=== PATIENT | female | born 1975 | race Caucasian/White ===

== ENCOUNTER 2022-11-11 11:56 | Inpatient (IN) | payer BC ==
[2022-11-11] MEDS ORDERED: Butorphanol 1 MG/ML SDV IVPUSH PRN (12:16)
[2022-11-11] MEDS ORDERED: Misoprostol 200 MCG Tab PO PRN (12:16)
[2022-11-11] MEDS ORDERED: Sodium Chloride 0.9% 20 ML SDV IV PRN (12:16)
[2022-11-11] MEDS ORDERED: Methylergonovine 0.2 MG/1 ML Amp IM PRN (12:16)
[2022-11-11] MEDS ORDERED: Carboprost Tromethamine 250 MCG/1 mL Vial IM PRN (12:16)
[2022-11-11] MEDS ORDERED: Ondansetron 4 MG/2 ML SDV IVPUSH PRN (12:16)
[2022-11-11] MEDS ORDERED: Sodium Chloride 0.9% 2.5 ML Syringe FLUSH PRN (12:16)
[2022-11-11] MEDS ORDERED: Lidocaine 1% 50 ML MDV INJECT PRN (12:16)
[2022-11-11] MEDS ORDERED: Water For Irrigation,Sterile 1,000 ML Container IRR PRN (12:16)
[2022-11-11] MEDS ORDERED: Sodium Chloride 0.9% 10 ML Syringe FLUSH PRN (12:16)
[2022-11-11] MEDS ORDERED: Tranexamic Acid 1,000 MG in Sodium Chloride 0.9% 100 ML IV PRN (12:16)
[2022-11-11] MEDS ORDERED: Terbutaline 1 MG/ML SDV SUBCUT PRN (12:16)
[2022-11-11] MEDS ORDERED: Oxytocin/0.9 % Sodium Chloride 30 UNIT/500 ML BAG IV SCH ×2 (12:30)
[2022-11-11] MEDS: Lactated Ringers 1,000 ML IV SCH (12:45)
[2022-11-11] MEDS ORDERED: Misoprostol 25 MCG (1/4 of 100 MCG) Tab VAG PRN ×2 (13:00→17:00)
[2022-11-11 13:01] LABS: HEMATOCRIT 40.7 % (36.0-46.0); HEMOGLOBIN 13.7 g/dL (12.0-16.0); MEAN CORPUSCULAR HEMOGLOBIN 30.5 pg (27.0-32.0); MEAN CORPUSCULAR HGB CONC 33.7 g/dL (31.0-37.0); MEAN CORPUSCULAR VOLUME 90.6 fL (80.0-98.0); MEAN PLATELET VOLUME 9.9 fL (7.40-12.00); RED BLOOD CELL COUNT 4.49 M/uL (4.30-5.90); WHITE BLOOD CELL COUNT,WBC 14.59 K/uL (4.0-11.0)
[2022-11-11 13:31] LABS: ALANINE AMINOTRANSFERASE,ALT 31 IU/L (14-63); ALBUMIN 2.3 g/dL (3.4-5.0); ALKALINE PHOSPHATASE 131 U/L (46-116); ASPARTATE AMNIOTRANSFERASE,AST 20 IU/L (15-37); BILIRUBIN TOTAL 0.5 mg/dL (0.2-1.0); BLOOD UREA NITROGEN,BUN 13 mg/dL (7.0-18.0); CALCIUM 8.9 mg/dL (8.5-10.1); CARBON DIOXIDE,CO2 21.5 mmol/L (21.0-32.0); CHLORIDE,CL 104 mmol/L (98-107); CREATININE 0.7 mg/dL (0.6-1.0); GLUCOSE RANDOM 89 mg/dL (74-106); PROTEIN TOTAL,TP 6.5 g/dL (6.4-8.2); SODIUM,NA 136 mmol/L (136-145)
[2022-11-11 13:34] LABS: A/G RATIO 0.6 (0.9-1.6); ESTIMATED GFR 107 mL/min (>60)
[2022-11-11 13:37] LABS: CREATININE,URINE RAND 18.2 mg/dL; PROTEIN,URINE RANDOM <6.0 mg/dL (<11.9)
[2022-11-11] MEDS ORDERED: Misoprostol 25 MCG (1/4 of 100 MCG) Tab VAG SCH (19:15)
[2022-11-12] MEDS: Lactated Ringers 1,000 ML IV SCH (01:35)
[2022-11-12] MEDS ORDERED: ePHEDrine 50 MG/ML SDV IVPUSH PRN ×2 (10:59)
[2022-11-12] MEDS ORDERED: Phenylephrine HCl 0.5 MG/5 ML AMP IVPUSH PRN (10:59)
[2022-11-12] MEDS ORDERED: Ropivacaine HCl/PF 400 MG in Premix Bag 1 BAG EPIDUR SCH (11:00)
[2022-11-12] MEDS ORDERED: Lanolin 100% Cream 7 GM Tube TOP PRN (11:26)
[2022-11-12] MEDS ORDERED: Bisacodyl 10 MG Supp RECTAL PRN (11:26)
[2022-11-12] MEDS ORDERED: Docusate Sodium 100 MG Cap PO PRN (11:26)
[2022-11-12] MEDS ORDERED: Benzocaine/Menthol 20%-0.5% Spray 78 GM Cannister TOP PRN (11:26)
[2022-11-12] MEDS ORDERED: Tranexamic Acid 1,000 MG in Sodium Chloride 0.9% 100 ML IV PRN (11:26)
[2022-11-12] MEDS ORDERED: Witch Hazel Medicated Pads 40/Jar TOP PRN (11:26)
[2022-11-12] MEDS ORDERED: Ibuprofen 400 MG Tab PO PRN (11:26)
[2022-11-12] MEDS ORDERED: Acetaminophen 500 MG Tab PO PRN (11:26)
[2022-11-12 11:30] LABS: PH,UMBILICAL ARTERIAL 7.251 (7.18-7.38); PH,UMBILICAL VENOUS 7.283 (7.25-7.45)
[2022-11-12] MEDS: Ibuprofen 800 MG Tab PO PRN (19:33)
[2022-11-13] MEDS: Acetaminophen 500 MG Tab PO PRN ×2 (00:03→07:48)
[2022-11-13] MEDS: Ibuprofen 800 MG Tab PO PRN ×2 (04:05→10:51)
[2022-11-13 06:15] LABS: HEMOGLOBIN 11.4 g/dL (12.0-16.0)
[2022-11-13] MEDS ORDERED: Levothyroxine 50 MCG Tab PO SCH (07:30)
[2022-11-13] MEDS ORDERED: Thyroid 60 MG Tab PO SCH (07:30)
[2022-11-13] MEDS ORDERED: Prenatal Multivitamin with Calcium/Folic Acid/Iron Tab PO SCH (09:00)
[2022-11-13] MEDS ORDERED: Ketorolac 30 MG/ML SDV IVPUSH ONE (14:39)
[2022-11-13] MEDS ORDERED: Sodium Chloride 0.9% 250 ML IV SCH (15:30)
[2022-11-14 04:39] VITALS: BP 118/85; PULSE 75
== END 2022-11-14 06:25 | disposition home or self-care (01) | DRG 560 ==
LOC: MW.OB 11:56 → MW.OBCHECK 11:56 → MW.OB 12:16 → MW.OBCHECK 12:16 → OBSVTOIN 11-12 11:27 → MW.OB 11-12 15:10
PROVIDERS: ADMIT Obstetrics & Gynecology; ATTEND Obstetrics & Gynecology
PROC: 10E0XZZ Delivery of Products of Conception, External Approach (ICD-10-PCS; principal; 2022-11-12)
PROC: 0KQM0ZZ Repair Perineum Muscle, Open Approach (ICD-10-PCS; 2022-11-12)
PROC: 10907ZC Drainage of Amniotic Fluid, Therapeutic from Products of Conception, Via Natural or Artificial Opening (ICD-10-PCS; 2022-11-12)
PROC: 3E0P7VZ Introduction of Hormone into Female Reproductive, Via Natural or Artificial Opening (ICD-10-PCS; 2022-11-12)
PROC: 3E033VJ Introduction of Other Hormone into Peripheral Vein, Percutaneous Approach (ICD-10-PCS; 2022-11-12)
PROC: 3E0R3BZ Introduction of Anesthetic Agent into Spinal Canal, Percutaneous Approach (ICD-10-PCS; 2022-11-12)
PROC: 00HU33Z Insertion of Infusion Device into Spinal Canal, Percutaneous Approach (ICD-10-PCS; 2022-11-12)
DX: O13.4 Gestational [pregnancy-induced] hypertension without significant proteinuria, complicating childbirth (principal); Z37.0 Single live birth; O40.3XX0 Polyhydramnios, third trimester, not applicable or unspecified; O70.1 Second degree perineal laceration during delivery; Z3A.38 38 weeks gestation of pregnancy; O69.5XX2 Labor and delivery complicated by vascular lesion of cord, fetus 2
CPT/HCPCS: 36415; 59025; 59409; 80053; 82570; 82803; 84156; 84550; 85014; 85018; 85027; 86592; 86850; 86900; 86901; A9270-GY; J0595; J1885; J2001; J2590; J3475; J7120

== ENCOUNTER 2022-11-17 13:19 | Inpatient (IN) | payer BC ==
[2022-11-17 14:02] LABS: BASOPHILS PERCENT AUTO 0.3 % (0.0-1.5); EOSINOPHILS ABSOLUTE AUTO 0.3 K/uL (0.0-0.7); EOSINOPHILS PERCENT AUTO 2.8 % (0.0-7.0); LYMPHOCYTES ABSOLUTE AUTO 1.9 K/uL (0.6-2.4); LYMPHOCYTES PERCENT AUTO 17.8 % (16.0-40.0); MEAN CORPUSCULAR HEMOGLOBIN 31.2 pg (27.0-32.0); MEAN CORPUSCULAR HGB CONC 34.3 g/dL (31.0-37.0); MEAN CORPUSCULAR VOLUME 90.9 fL (80.0-98.0); MONOCYTES ABSOLUTE AUTO 1.1 K/uL (0.0-0.8); MONOCYTES PERCENT AUTO 10.2 % (0.0-15.0); NEUTROPHILS ABSOLUTE AUTO 7.3 K/uL (1.4-5.7); NEUTROPHILS PERCENT AUTO 68.9 % (48.0-80.0); NRBC ABSOLUTE 0 K/uL; PLATELET COUNT,PLT 253 K/uL (150-400); RED BLOOD CELL COUNT 3.85 M/uL (4.30-5.90); WHITE BLOOD CELL COUNT,WBC 10.57 K/uL (4.0-11.0)
[2022-11-17] MEDS ORDERED: Labetalol 100 MG/20 ML MDV IVPUSH ONE ×2 (14:04→16:09)
[2022-11-17] MEDS ORDERED: Magnesium Sulfate/Water 4 GM in Premix Bag 1 BAG IV ONE (14:05)
[2022-11-17 14:11] LABS: INR < 0.93 (0.86-1.11)
[2022-11-17 14:11] LABS: APPEARANCE,URINE CLEAR; BILIRUBIN,URINE NEGATIVE (NEGATIVE); COLOR,URINE YELLOW; GLUCOSE,URINE NEGATIVE (NEGATIVE); KETONES,URINE NEGATIVE (NEGATIVE); LEUKOCYTE ESTERASE,URINE NEGATIVE (NEGATIVE); NITRITE,URINE NEGATIVE (NEGATIVE); OCCULT BLOOD,URINE MODERATE (NEGATIVE); PH,URINE 6.5 (5.0-8.0); PROTEIN,URINE NEGATIVE (NEGATIVE); UROBILINOGEN,URINE 0.2 EU/dL (<2.0)
[2022-11-17 14:24] LABS: A/G RATIO 0.6 (0.9-1.6); ALBUMIN 2.3 g/dL (3.4-5.0); BILIRUBIN TOTAL 0.4 mg/dL (0.2-1.0); CALCIUM 8.2 mg/dL (8.5-10.1); CARBON DIOXIDE,CO2 24.4 mmol/L (21.0-32.0); CREATININE 0.8 mg/dL (0.6-1.0); EST CRCL DRUG DOSING (CG) 74.26 mL/min; PROTEIN TOTAL,TP 5.9 g/dL (6.4-8.2)
[2022-11-17 14:25] LABS: MAGNESIUM 1.7 mg/dL (1.8-2.4); URIC ACID 5.2 mg/dL (2.6-7.2)
[2022-11-17 14:27] LABS: BACTERIA,URINE FEW (NEGATIVE); EPITHELIAL CELLS,URINE FEW (NONE-FEW); RBC,URINE 0-3 (0-2/HPF); WBC,URINE 0-1 (0-5/HPF)
[2022-11-17 14:28] LABS: MUCUS,URINE LIGHT (NONE-MOD)
[2022-11-17] MEDS ORDERED: Acetaminophen 325 MG Tab PO ONE (15:49)
[2022-11-17] MEDS: Magnesium Sulfate/Water 20 GM/500 ML BAG IV SCH (16:02)
[2022-11-17] MEDS ORDERED: Sodium Chloride 0.9% 1,000 ML IV SCH (17:45)
[2022-11-17] MEDS ORDERED: Ketorolac 30 MG/ML SDV IVPUSH ONE (17:50)
[2022-11-17] MEDS ORDERED: Sodium Chloride 0.9% 10 ML Syringe FLUSH PRN (19:41)
[2022-11-17] MEDS ORDERED: Sodium Chloride 0.9% 2.5 ML Syringe FLUSH PRN (19:41)
[2022-11-17] MEDS ORDERED: Sodium Chloride 0.9% 20 ML SDV IV PRN (19:41)
[2022-11-17] MEDS ORDERED: Calcium Gluconate 10% 1 GM/10 ML SDV IV PRN (19:41)
[2022-11-17] MEDS: Labetalol 100 MG Tab PO SCH (21:11)
[2022-11-17] MEDS ORDERED: Metoclopramide 10 MG/2 ML SDV IVPUSH ONE (22:25)
[2022-11-17 23:05] LABS: HEMATOCRIT 35.5 % (36.0-46.0); HEMOGLOBIN 11.9 g/dL (12.0-16.0); MEAN CORPUSCULAR HEMOGLOBIN 30.6 pg (27.0-32.0); MEAN CORPUSCULAR HGB CONC 33.5 g/dL (31.0-37.0); MEAN CORPUSCULAR VOLUME 91.3 fL (80.0-98.0); MEAN PLATELET VOLUME 9.3 fL (7.40-12.00); RED BLOOD CELL COUNT 3.89 M/uL (4.30-5.90); WHITE BLOOD CELL COUNT,WBC 11.55 K/uL (4.0-11.0)
[2022-11-17 23:32] LABS: A/G RATIO 0.6 (0.9-1.6); ALBUMIN 2.3 g/dL (3.4-5.0); BILIRUBIN TOTAL 0.4 mg/dL (0.2-1.0); CARBON DIOXIDE,CO2 20.7 mmol/L (21.0-32.0); CREATININE 0.8 mg/dL (0.6-1.0); EST CRCL DRUG DOSING (CG) 74.26 mL/min; MAGNESIUM 5.5 mg/dL (1.8-2.4); POTASSIUM,K 3.7 mmol/L (3.5-5.1)
[2022-11-18] MEDS: Magnesium Sulfate/Water 20 GM/500 ML BAG IV SCH ×2 (02:06→11:58)
[2022-11-18] MEDS ORDERED: Ketorolac 30 MG/ML SDV IVPUSH ONE (02:26)
[2022-11-18] MEDS: Acetaminophen/oxyCODONE 325-5 MG Tab PO PRN ×3 (08:36→21:21)
[2022-11-18] MEDS: Labetalol 100 MG Tab PO SCH ×2 (08:38→21:16)
[2022-11-18 10:38] LABS: HEMATOCRIT 34.5 % (36.0-46.0); HEMOGLOBIN 11.8 g/dL (12.0-16.0); MEAN CORPUSCULAR HEMOGLOBIN 31.2 pg (27.0-32.0); MEAN CORPUSCULAR HGB CONC 34.2 g/dL (31.0-37.0); MEAN CORPUSCULAR VOLUME 91.3 fL (80.0-98.0); MEAN PLATELET VOLUME 9.3 fL (7.40-12.00); RED BLOOD CELL COUNT 3.78 M/uL (4.30-5.90); WHITE BLOOD CELL COUNT,WBC 13.51 K/uL (4.0-11.0)
[2022-11-18 11:04] LABS: A/G RATIO 0.6 (0.9-1.6); ALBUMIN 2.2 g/dL (3.4-5.0); BILIRUBIN TOTAL 0.4 mg/dL (0.2-1.0); CARBON DIOXIDE,CO2 21.9 mmol/L (21.0-32.0); CREATININE 0.9 mg/dL (0.6-1.0); EST CRCL DRUG DOSING (CG) 66.01 mL/min; MAGNESIUM 6.5 mg/dL (1.8-2.4); POTASSIUM,K 3.9 mmol/L (3.5-5.1); PROTEIN TOTAL,TP 5.7 g/dL (6.4-8.2)
[2022-11-19] MEDS: Acetaminophen/oxyCODONE 325-5 MG Tab PO PRN ×4 (04:35→20:43)
[2022-11-19 06:15] LABS: A/G RATIO 0.6 (0.9-1.6); ALBUMIN 2.3 g/dL (3.4-5.0); BILIRUBIN TOTAL 0.6 mg/dL (0.2-1.0); CALCIUM 6.9 mg/dL (8.5-10.1); CARBON DIOXIDE,CO2 23.2 mmol/L (21.0-32.0); EST CRCL DRUG DOSING (CG) 59.41 mL/min; POTASSIUM,K 4.3 mmol/L (3.5-5.1)
[2022-11-19] MEDS: NIFEdipine 30 MG Tab.ER PO SCH (09:06)
[2022-11-19] MEDS ORDERED: Furosemide 20 MG Tab PO ONE (11:19)
[2022-11-19] MEDS ORDERED: NIFEdipine 10 MG Cap PO ONE (15:38)
[2022-11-19] MEDS ORDERED: NIFEdipine 30 MG Tab.ER PO ONE (15:56)
[2022-11-19] MEDS ORDERED: Labetalol 100 MG Tab PO ONE (18:06)
[2022-11-19] MEDS: Ibuprofen 800 MG Tab PO PRN (18:41)
[2022-11-19] MEDS: Pantoprazole 40 MG Tab.CR PO SCH (21:17)
[2022-11-19] MEDS: Labetalol 100 MG Tab PO SCH (22:14)
[2022-11-20] MEDS: Acetaminophen/oxyCODONE 325-5 MG Tab PO PRN ×3 (00:33→09:04)
[2022-11-20] MEDS: Labetalol 100 MG Tab PO SCH (06:05)
[2022-11-20] MEDS ORDERED: Thyroid 60 MG Tab PO SCH (07:30)
[2022-11-20] MEDS: Ibuprofen 800 MG Tab PO PRN ×2 (07:38→20:48)
[2022-11-20] MEDS ORDERED: Furosemide 20 MG Tab PO SCH (09:00)
[2022-11-20] MEDS: NIFEdipine 30 MG Tab.ER PO SCH ×2 (09:02→21:19)
[2022-11-20] MEDS ORDERED: Labetalol 100 MG Tab PO PRN (10:30)
[2022-11-20] MEDS ORDERED: NIFEdipine 30 MG Tab.ER PO ONE (10:34)
[2022-11-20] MEDS: Levothyroxine 50 MCG Tab PO SCH (15:39)
[2022-11-20] MEDS: Thyroid 60 MG Tab PO SCH (15:47)
[2022-11-20 16:34] LABS: T3 FREE 2.46 pg/mL (2.18-3.98); T4 FREE 0.86 ng/dL (0.76-1.46); TSH ULTRASENSITIVE 2.89 uIU/mL (0.36-3.74)
[2022-11-20 20:21] LABS: HEMATOCRIT 37.8 % (36.0-46.0); HEMOGLOBIN 12.8 g/dL (12.0-16.0); MEAN CORPUSCULAR HEMOGLOBIN 31.2 pg (27.0-32.0); MEAN CORPUSCULAR HGB CONC 33.9 g/dL (31.0-37.0); MEAN CORPUSCULAR VOLUME 92.2 fL (80.0-98.0); RED BLOOD CELL COUNT 4.1 M/uL (4.30-5.90); WHITE BLOOD CELL COUNT,WBC 9.72 K/uL (4.0-11.0)
[2022-11-20] MEDS: Pantoprazole 40 MG Tab.CR PO SCH (21:22)
[2022-11-21] MEDS: Ibuprofen 800 MG Tab PO PRN ×2 (04:48→17:21)
[2022-11-21 06:15] LABS: A/G RATIO 0.6 (0.9-1.6); ALBUMIN 2.7 g/dL (3.4-5.0); BILIRUBIN TOTAL 0.7 mg/dL (0.2-1.0); CALCIUM 9.2 mg/dL (8.5-10.1); CARBON DIOXIDE,CO2 26.5 mmol/L (21.0-32.0); CREATININE 0.9 mg/dL (0.6-1.0); EST CRCL DRUG DOSING (CG) 66.01 mL/min; POTASSIUM,K 4.5 mmol/L (3.5-5.1)
[2022-11-21] MEDS: Acetaminophen/oxyCODONE 325-5 MG Tab PO PRN (07:03)
[2022-11-21] MEDS: Levothyroxine 50 MCG Tab PO SCH (09:07)
[2022-11-21] MEDS: Thyroid 60 MG Tab PO SCH (09:10)
[2022-11-21] MEDS: NIFEdipine 30 MG Tab.ER PO SCH (09:14)
[2022-11-21] MEDS ORDERED: MAGNESIUM OXIDE 400 MG PO SCH (11:00)
[2022-11-21 15:59] VITALS: BP 124/75; PULSE 62
== END 2022-11-21 17:30 | disposition home or self-care (01) | DRG 561 ==
LOC: MW.ED 13:19 → MW.OB 16:19 → OBSVTOIN 11-19 22:00 → MW.OB 11-19 22:32
PROVIDERS: ADMIT Obstetrics & Gynecology; ATTEND Obstetrics & Gynecology
DX: O14.15 Severe pre-eclampsia, complicating the puerperium (principal); R51.9 Headache, unspecified; O99.893 Other specified diseases and conditions complicating puerperium; O99.285 Endocrine, nutritional and metabolic diseases complicating the puerperium; E03.9 Hypothyroidism, unspecified; Z88.8 Allergy status to other drugs, medicaments and biological substances; Z79.899 Other long term (current) drug therapy; Z79.890 Hormone replacement therapy
CPT/HCPCS: 36415; 70450; 70450-26; 71045; 71045-26; 80053; 81001; 83615; 83690; 83735; 84439; 84443; 84481; 84550; 85025; 85027; 85610; 86376; 93005; 93010; 96365; 96366; 96375; 96376; 99285-25; 99291; A9270-GY; G0378; J1885; J2765; J3475; J3490